=== PATIENT | male | born 1955 | race Caucasian/White ===

== ENCOUNTER 2017-10-24 09:08 | Emergency (ER) | payer MEDICARE, OTHER ==
--- NOTE | 2017-10-24 09:26 | Emergency Department Record ---
History of Present Illness - General Chief complaint: Hypogylcemia Stated complaint: LOW BLOOD SUGAR Time Seen by Provider: 10/24/17 09:19 Source: Patient, RN notes reviewed Mode of Arrival: Wheelchair - History of Present Illness Initial comments: patient had a low sugar reaction this AM glucose 45 and he was brought over to ED and given juice and he feels better and a repeat glucose happening in 5 minutes . Patient states on levimir 25 units BID and novolog sliding scale. 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 Patient had insurance problems and had to go to Dr. Diamond in [place] as primary and now he wants to go back to the [facility] with Dr. Madera. Patient only had two pieces of toast and peanut butter today. He took 11 units of novolog this AM(10 units for meal plus one unit of scale). 7AM today breakfast at 6:30am Onset/Timin -: Hour(s) Associated Symptoms: Denies other symptoms - [place] Coma Scale Eye Response: (4) Open spontaneously Motor Response: (6) Obeys commands Verbal Response: (5) Oriented [place] Total: 15 - Related Data Home Medications Medication Instructions Recorded Confirmed Last Taken Apixaban [Eliquis] 2.5 mg PO BID 10/24/17 10/24/17 10/24/17 Clonidine HCl 0.1 mg PO BID 10/24/17 10/24/17 10/24/17 Hydralazine HCl 100 mg PO TID 10/24/17 10/24/17 10/24/17 Insulin Aspart [Novolog Flexpen] 1 unit SQ ASDIR 10/24/17 10/24/17 10/24/17 Omeprazole 40 mg PO DAILY 10/24/17 10/24/17 10/24/17 Tamsulosin HCl [Flomax] 0.4 mg PO DAILY 10/24/17 10/24/17 10/24/17 Previous Rx's Medication Instructions Recorded Hydrochlorothiazide [Hctz] 25 mg PO DAILY #90 tablet 01/21/15 Metoprolol Succinate [Toprol Xl] 25 mg PO DAILY #90 tab.er.24h 01/21/15 Pen Needle, Diabetic [Unifine 1 each MC BID #100 dis.needle 01/21/15 Pentips Plus] Allergies Allergy/AdvReac Type Severity Reaction Status Date / Time No Known Drug Allergies Allergy Verified 10/24/17 09:13 Travel Screening - Travel/Exposure Within Last 30 Days Have you traveled within the last 30 days?: No - Travel/Exposure Within Last Year Have you traveled outside the [place] in the last year?: No - Additonal Travel Details Have you been exposed to anyone with a communicable illness?: No - Travel Symptoms Symptom Screening: None Review of Systems Reviewed: No additional complaints except as noted below Constitutional: Reports: As per HPI. Denies: Chills, Fever, Malaise, Night sweats, Weakness, Weight change Eyes: Reports: As per HPI. Denies: Eye discharge, Eye pain, Photophobia, Vision change ENT: Reports: As per HPI. Denies: Congestion, Dental pain, Ear pain, Epistaxis , Hearing loss, Throat pain Respiratory: Reports: As per HPI. Denies: Cough, Dyspnea, Hemoptysis, Stridor, Wheezes Cardiovascular: Reports: As per HPI. Denies: Arrhythmia, Chest pain, Dyspnea on exertion, Edema, Murmurs, Orthopnea, Palpitations, Paroxysmal nocturnal dyspnea, Rheumatic Fever, Syncope Endocrine: Reports: As per HPI. Denies: Fatigue, Heat or cold intolerance, Polydipsia, Polyuria Gastrointestinal: Reports: As per HPI. Denies: Abdominal pain, Constipation, Diarrhea, Hematemesis, Hematochezia, Melena, Nausea, Vomiting Genitourinary: Reports: As per HPI. Denies: Dysuria, Frequency, Hematuria, Incontinence, Retention, Testicular pain, Testicular mass, Urgency Musculoskeletal: Reports: As per HPI. Denies: Arthralgia, Back pain, Gout, Joint swelling, Myalgia, Neck pain Skin: Reports: As per HPI. Denies: Bruising, Change in color, Change in hair/ nails, Lesions, Pruritus, Rash Neurological: Reports: As per HPI. Denies: Abnormal gait, Confusion, Headache, Numbness, Paresthesias, Seizure, Tingling, Tremors, Vertigo, Weakness Psychiatric: Reports: As per HPI. Denies: Anxiety, Auditory hallucinations, Depression, Homicidal thoughts, Suicidal thoughts, Visual hallucinations Hematological/Lymphatic: Reports: As per HPI. Denies: Anemia, Blood Clots, Easy bleeding, Easy bruising, Swollen glands Past Medical History - SOCIAL HISTORY Smoking Status: Never smoker Alcohol Use: None Drug Use: Occasional Drug Use Detail:: Marijuana - RESPIRATORY Hx Respiratory Disorders: No - CARDIOVASCULAR Hx Cardio Disorders: Yes Hx Hypertension: Yes Hx Irregular Heartbeat: Yes (A Fib) - NEURO Hx Neuro Disorders: No - GI Hx GI Disorders: Yes Hx Reflux: Yes - Hx Genitourinary Disorders: Yes Hx Prostate Problems: Yes - ENDOCRINE Hx Endocrine Disorders: Yes Hx Diabetes: Yes - MUSCULOSKELETAL Hx Musculoskeletal Disorders: No - PSYCH Hx Psych Problems: No - HEMATOLOGY/ONCOLOGY Hx Hematology/Oncology Disorders: No Family Medical History Any Significant Family History?: No Physical Exam - General General Appearance: Alert, Oriented x3, Cooperative, No acute distress - Head Head exam: Normal inspection - Eye Eye exam: Normal appearance, PERRL Pupils: Normal accommodation - ENT ENT exam: Normal exam, Mucous membranes moist, Normal external ear exam, Normal orophraynx, TM's normal bilaterally Ear exam: Normal external inspection. negative: External canal tenderness Nasal Exam: Normal inspection. negative: Discharge, Sinus tenderness Mouth exam: Normal external inspection, Tongue normal Teeth exam: Normal inspection. negative: Dental caries Throat exam: Normal inspection. negative: Tonsillar erythema, Tonsillar exudate - Neck Neck exam: Normal inspection, Full ROM. negative: Tenderness - Respiratory Respiratory exam: Normal lung sounds bilaterally. negative: Respiratory distress - Cardiovascular Cardiovascular Exam: Regular rate, Normal rhythm, Normal heart sounds - GI/Abdominal GI/Abdominal exam: Soft, Normal bowel sounds. negative: Tenderness - Rectal Rectal exam: Deferred - exam: Deferred - Extremities Extremities exam: Normal inspection, Full ROM, Normal capillary refill. negative: Tenderness - Back Back exam: Reports: Normal inspection, Full ROM. Denies: Muscle spasm, Rash noted, Tenderness - Neurological Neurological exam: Alert, Normal gait, Oriented X3, Reflexes normal - Psychiatric Psychiatric exam: Normal affect, Normal mood - Skin Skin exam: Dry, Intact, Normal color, Warm Course Vital Signs 10/24/17 09:15 Temperature 97.3 F L Pulse Rate 70 Respiratory 18 Rate Blood Pressure 151/71 Pulse Ox 99 - Reevaluation(s) Reevaluation #1: glucose initially 45 and after orange juice it was 75 and willl give him a meal 10/24/17 09:44 Reevaluation #2: discussed case with Dr. 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 Madera as scheduled the office will call and reschedule an appointment decrease levimir to 20 units BID continue checking glucose four times a day. Forms: Patient Portal Access Time of Disposition: 10:11 Quality - Quality Measures Quality Measures: N/A - Blood Pressure Screening Does Patient Have Any of the Following: No, Active Dx of HTN Blood Pressure Classification: Hypertensive Reading Systolic Measurement: 151 Diastolic Measurement: 71 Screening for High Blood Pressure: Patient Exclusion, Hx of HTN [[id number]]
== END 2017-10-24 10:55 | disposition home or self-care (01) ==
LOC: ER 09:08
DX: E11.649 Type 2 diabetes mellitus with hypoglycemia without coma (principal); E11.65 Type 2 diabetes mellitus with hyperglycemia; I48.91 Unspecified atrial fibrillation; I10 Essential (primary) hypertension; Z79.4 Long term (current) use of insulin
CPT/HCPCS: 36416; 82947; 82948; 99283

== ENCOUNTER 2017-11-29 10:56 | Day surgery (SDC) | payer MEDICARE ==
[2017-11-29] MEDS ORDERED: LIDOCAINE 2% MDV (20MG/ML) 20ML VIAL IV ONE (10:57)
[2017-11-29] MEDS ORDERED: ONDANSETRON HCL IV 4 MG/2 ML VIAL IVP ONE (10:57)
[2017-11-29] MEDS ORDERED: MIDAZOLAM HCL 2MG/2ML VIAL IV ONE (10:57)
--- NOTE | 2017-11-30 12:50 | Operative Note ---
DATE OF SURGERY: 11/29/2017 OPERATION: COLONOSCOPY. PREOPERATIVE DIAGNOSIS: Family history of colon polyps. POSTOPERATIVE DIAGNOSIS: Fair prep. Otherwise normal exam. PROCEDURE: After informed consent was obtained from the patient, he was placed in the left lateral decubitus position in the endoscopy suite, sedated and monitored by the department of anesthesia. Digital rectal exam was unremarkable. A well-lubricated LL325CL colonoscope was inserted into the rectum and advanced to the cecum. Preparation quality was fair at best. Transabdominal pressure was required to intubate the cecum. Numerous areas were rinsed. The preparation quality despite this was fair at best. The cecum, ascending colon, transverse colon, descending colon, sigmoid colon, and rectum were free of any obvious polyps or mass lesions. Small polyps may have been obscured by the preparation quality. J-turn views of the anorectum were unremarkable. The endoscope was straightened, the rectal ampulla deflated, and the endoscope was removed. RECOMMENDATIONS: The patient should resume his medications and diet. It appears that he is not able to afford his Eliquis and therefore given his history of AFib, I have asked him to contact Bibi Paz to determine if another antiplatelet agent would be affordable or other options would be worth considering. In addition, he should undergo repeat colonoscopy in 1 year given the prep quality. As always, thank you for allowing me to participate in the healthcare of your patients. CC: CRUZ Michael
== END 2017-11-29 12:55 | disposition home or self-care (01) ==
LOC: HOP 10:56
PROVIDERS: ATTEND Internal Medicine Gastroenterology
DX: Z12.11 Encounter for screening for malignant neoplasm of colon (principal); Z83.71 Family history of colonic polyps; I10 Essential (primary) hypertension; E11.9 Type 2 diabetes mellitus without complications; Z79.4 Long term (current) use of insulin; E78.00 Pure hypercholesterolemia, unspecified; I48.91 Unspecified atrial fibrillation
CPT/HCPCS: 00812; G0121; J2405